=== PATIENT | male | born 1985 | race Caucasian/White ===

== ENCOUNTER 2018-01-04 12:26 | Emergency (ER) | payer MEDICAID, OTHER ==
--- NOTE | 2018-01-04 12:40 | EDPHY ---
H & P Time Seen by Provider: 01/04/18 12:31 HPI/ROS: CHIEF COMPLAINT: Depression HISTORY OF PRESENT ILLNESS: Patient is a 32-year-old homeless man with history of PTSD, attention deficit hyperactivity disorder and depression. He states that he has not been taking his medication for the last month. He is supposed to take Zyprexa, clonazepam and gabapentin. He no longer has any medications. He states that he has not been eating and has been wandering around neighborhood. He denies suicidal or homicidal ideation. He presented to the [facility] for evaluation but they do not see out patient' s and so sent him here to the ER. He is not on a hold. He denies recent drug or alcohol use. Severity: Moderate Modifying factors: None REVIEW OF SYSTEMS: Constitutional: denies: chills, fever, recent illness, recent injury EENTM: denies: blurred vision, double vision, nose congestion Respiratory: denies: cough, shortness of breath Cardiac: denies: chest pain, irregular heart rate, lightheadedness, palpitations Gastrointestinal/Abdominal: denies: abdominal pain, diarrhea, nausea, vomiting, blood streaked stools Genitourinary: denies: dysuria, frequency, hematuria, pain Musculoskeletal: denies: joint pain, muscle pain Skin: denies: lesions, rash, jaundice, bruising Neurological: denies: headache, numbness, paresthesia, tingling, dizziness, weakness Hematologic/Lymphatic: denies: blood clots, easy bleeding, easy bruising Immunologic/allergic: denies: HIV/AIDS, transplant 10 systems reviewed and negative except as noted EXAM: GENERAL: Well-appearing, well-nourished and in no acute distress. HEAD: Atraumatic, normocephalic. EYES: Pupils equal round and reactive to light, extraocular movements intact, sclera anicteric, conjunctiva are normal. ENT: TMs normal, nares patent, oropharynx clear without exudates. Moist mucous membranes. NECK: Normal range of motion, supple without lymphadenopathy or JVD. LUNGS: Breath sounds clear to auscultation bilaterally and equal. No wheezes rales or rhonchi. HEART: Regular rate and rhythm without murmurs, rubs or gallops. ABDOMEN: Soft, nontender, normoactive bowel sounds. No guarding, no rebound. No masses appreciated. BACK: No CVA tenderness, no spinal tenderness, step-offs or deformities EXTREMITIES: Normal range of motion, no pitting or edema. No clubbing or cyanosis. NEUROLOGICAL: Cranial nerves II through XII grossly intact. Normal speech, normal gait. 5/5 strength, normal movement in all extremities, normal sensation , normal reflexes PSYCH: Decreased affect, answers all questions appropriately. SKIN: Warm, dry, normal turgor, no visible rashes or lesions. Source: Patient, EMS Exam Limitations: No limitations - Medical/Surgical History Hx Asthma: No Hx Chronic Respiratory Disease: No Hx Diabetes: No Hx Cardiac Disease: No Hx Renal Disease: No Hx Cirrhosis: No Hx Alcoholism: No Hx HIV/AIDS: No Hx Splenectomy or Spleen Trauma: No Other PMH: schizophrenia - Family History Significant Family History: No pertinent family hx - Social History Smoking Status: Current every day smoker Alcohol Use: Sober Drug Use: None Constitutional: Initial Vital Signs Temperature (C) 36.5 C 01/04/18 12:26 Heart Rate 78 01/04/18 12:26 Respiratory Rate 18 01/04/18 12:26 Blood Pressure 138/77 H 01/04/18 12:26 O2 Sat (%) 97 01/04/18 12:26 O2 Delivery Mode Room Air Allergies/Adverse Reactions: haloperidol [From Haldol] Allergy (Verified 10/12/17 16:05) Home Medications: Medication Instructions Recorded OLANZapine [Zyprexa] 5 mg PO DAILY #30 tablet 01/04/18 Medical Decision Making ED Course/Re-evaluation: 12:40 p.m. The patient is awake and alert and answers questions appropriately. He does not appear to be a threat to himself or others. He does not appear to be gravely disabled. I agree that he should meet with the Psychology team and get back on his medications. I do not think that he needs to be on hold. I think that he may be more appropriately sent to the crisis Center. We will have [facility] evaluate. 1:15 p.m. [facility] agrees that is appropriate to send this patient to the crisis Center. Will have case management assist him with halfway as well. He is currently homeless. 1:20 p.m. case management is requesting that we prescribed the patient Zyprexa before he goes to the crisis Center because they will not have prescriptive authority there today. I do not feel comfortable prescribing him Klonopin or gabapentin as a are more apt to abuse. Differential Diagnosis: Partial list of the Differential diagnosis considered include but were not limited to; depression, anxiety and although unlikely based on the history and physical exam, I also considered head injury, infection, suicidality. Departure - Departure Disposition: Home, Routine, Self-Care Clinical Impression: Severe major depression Condition: Fair Instructions: Depression (ED) Additional Instructions: Go directly to the crisis Center as discussed. Referrals: Patient,NotPresent [Unknown] - As per Instructions [facility],. [Clinic] - 1 day without fail Prescriptions: OLANZapine [Zyprexa] 5 mg PO DAILY #30 tablet
[2018-01-04 13:27] VITALS: BP 138/77
--- NOTE | 2018-01-05 10:14 | ASMTCMCOM ---
CM Note CM Note Notes: Late Entry from 01/04/18: Pt presented to the ED via EMS for depression and being out of his medications which include Zyprexa, Gabapentin and Klonopin. Pt states he tried to go to [facility] but "they weren't able to help me." Pt states the last time he filled his Rxns was after being given them by an ED provider at [facility]. Pt states he has not been staying at either of the shelters lately and he thinks he completed [facility] but can't remember which one he was referred to; but pt states he doesn't want to stay at the shelters anyways. Pt states he has been just walking and wandering around [place] during the day and throughout the night. Pt informed that the ED MD will only provide a Rxn for his Zyprexa. Pt verbalizes understanding. CM had his Rxn filled via his Medicaid at the [facility] and it was delivered to him. Pt states he would like to discharge to [facility]; pt provided a cab voucher to get there. Pt recommended to follow up with [facility]. This CM was able to get pt an appt at on 01/05/18 at 9am. Pt states he will go to the appt and was provided PC location and contact information. Pt also provided a [facility] pamphlet and encouraged to contact Siena Mendez RN. Pt states he does not have a cell phone at this time. Pt states he is flying back to [place] on 01/06 to assist his mother with moving back to [place]. CM available for further information if needed. Date Signed: 01/05/2018 10:13 AM Electronically Signed By:Saranya Amin RN
== END 2018-01-04 14:49 | disposition home or self-care (01) ==
LOC: EDUNIT#
DX: F32.2 Major depressive disorder, single episode, severe without psychotic features (principal); F17.200 Nicotine dependence, unspecified, uncomplicated; Z59.0 Homelessness